=== PATIENT | female | born 1945 | race Caucasian/White ===

== ENCOUNTER → 2021-10-12 11:24 | Outpatient (BNVA) | payer MEDICARE, SELFPAY | PROVIDERS: PCP Nurse Practitioner Family; Visit Provider Nurse Practitioner Family | DX: Z20.822 Contact with and (suspected) exposure to COVID-19 (principal); R05.9 Cough, unspecified | CPT/HCPCS: 87635 ==

== ENCOUNTER → 2021-12-13 10:02 | Outpatient (BNVA) | payer MEDICARE, SELFPAY | PROVIDERS: PCP Nurse Practitioner Family; Visit Provider Nurse Practitioner Family | DX: I10 Essential (primary) hypertension (principal); E78.5 Hyperlipidemia, unspecified; M19.90 Unspecified osteoarthritis, unspecified site | CPT/HCPCS: 80053; 80061 ==

== ENCOUNTER 2022-01-04 12:47 | Outpatient (CLI) | payer MEDICARE, SELFPAY ==
--- NOTE | 2022-01-04 13:02 | XR_ITS ---
WS: [id number] Thoracic spine, 3 views of the thoracolumbar spine. 01/04/2022 Clinical Data: M54.9 - Dorsalgia, unspecified Comparison: None. Findings: There is a slight dextroscoliosis with kyphosis of the thoracic spine with moderate osteoarthritic ch chuy. The paravertebral regions are unremarkable. No acute thoracic compression fractures are seen bu t there is wedging of T12. There is a thoracolumbar posterior fusion from T12 extending into the sacr um. There is an anterior lumbosacral fusion L5-S1. There are artificial disks at L3-L4, L4-L5 and L5-S1. There are 3 orthopedic anchors in one of the hu meral heads. XR/XR thoracic spine 3V* [id number] Impression: 1. 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 2. There is a thoracolumbar posterior fusion from T12-S1 and anterior fusion at L5-S1.
== END 2022-01-04 12:48 | disposition home or self-care (01) ==
LOC: RAD 12:51
PROVIDERS: PCP Nurse Practitioner Family; Visit Provider Nurse Practitioner Family
DX: M54.9 Dorsalgia, unspecified (principal); M41.84 Other forms of scoliosis, thoracic region; M47.814 Spondylosis without myelopathy or radiculopathy, thoracic region; Z98.1 Arthrodesis status; R06.02 Shortness of breath; I10 Essential (primary) hypertension; E78.5 Hyperlipidemia, unspecified; K21.9 Gastro-esophageal reflux disease without esophagitis; K22.70 Barrett's esophagus without dysplasia; M19.90 Unspecified osteoarthritis, unspecified site; R60.9 Edema, unspecified
CPT/HCPCS: 72072; 99204

== ENCOUNTER → 2022-03-28 10:23 | Outpatient (BNVA) | payer MEDICARE, SELFPAY | PROVIDERS: PCP Nurse Practitioner Family; Visit Provider Internal Medicine Cardiovascular Disease | DX: R06.00 Dyspnea, unspecified (principal); I10 Essential (primary) hypertension; I25.10 Atherosclerotic heart disease of native coronary artery without angina pectoris | CPT/HCPCS: 99213; 99214 ==

== ENCOUNTER 2022-04-20 08:35 | Outpatient (CLI) | payer MEDICARE, SELFPAY ==
--- NOTE | 2022-04-20 | ECG_ITS ---
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 Interpretive Statements NAME OF STUDY: LEXISCAN SESTAMIBI STRESS TEST INDICATION: Chest Pain, Shortness of breath PROCEDURE: At the baseline, the blood pressure was 138/60 mmHg with a heart rate of 59 bpm. The electrocardiogram showed sinus rhythm, normal axis with nonspecific ST changes.. The Lexiscan was infused over a period of 20 seconds. A total of 0.4 milligrams of Lexiscan was infused. The stress phase was continued for a total of 5 minutes. Heart rate at the end of the stress phase was 77 bpm with a blood pressure of 127/53 mmHg. The EKG at the peak infusion revealed sinus rhythm with no significant ST-T wave changes. The study was terminated due to protocol completion. Sestamibi was injected 20 seconds after the Lexiscan infusion. Blood pressure at the end of the recovery phase was 124/55 mmHg with a heart rate of 74 beats per minute. CONCLUSION: 1. No significant EKG changes with the LexiScan infusion. 2. No LexiScan induced chest pain or cardiac arrhythmia. 3. Normal blood pressure and heart rate response. 4. Sestamibi/sestamibi perfusion scan pending; see separate report. Electronically Signed On 04-22-2022 13:40:50 CDT by Summer Shore M.D. [id number]
[2022-04-20 08:57] VITALS: BMI 20.2
--- NOTE | 2022-04-20 08:57 | NMCV_ITS ---
NM adams perf SPECT r/s* [id number] Mónica Lopez Age: 76 Gender: F : 1945 Exam Date: 04/20/2022 09:48 Ordering Phys: Summer Shore MD ([email or web address]) Technologist: DANILO Enamorado Exam Location: [facility] Indications: CHEST PAIN STRESS TEST Please see separate stress test report in [facility] for full findings IMAGE PROTOCOL Rest/Stress 1 Lexiscan Day Radiopharmaceutical Dose (mCi) Administration Site Administered by Rest: Tc-99m 10.6 IV DANILO Ruiz Sestamibi Stress:Tc-99m 32.5 IV DANILO Ruiz Sestamibi Rest: 20-Apr-2022 60 Discovery 630 Stress: 20-Apr-2022 30 Discovery 630 0.4mg Lexiscan. Images obtained in supine and prone position. SPECT RESULTS Technical Quality: Excellent Raw Data Analysis: Normal Image Corrections: No attenuation or motion correction applied Summed Stress Score: 2 Summed Rest Score: 1 Summed Difference Score: 2 PERFUSION FINDINGS Small size perfusion abnormality of mild severity of apical inferior and apical lateral becerra on rest images with improved tracer uptake on stress images. This is suggestive of attenuation artifact. FUNCTIONAL RESULTS (calculated via Gated SPECT) Stress Image LV EF (%): 81 Stress EDV (mL):64 TID: 0.98 Stress ESV (mL):12 FUNCTIONAL FINDINGS: The left ventricle is normal in size. Transient Ischemia Dilatation of 0.98. The left ventricular ejection fraction is hyperdynamic with a value of 81%. There is hyperdynamic left ventricular wall thickening. IMPRESSIONS 1. Myocardial perfusion imaging is normal. Attenuation artifact noted in apical inferior and apical lateral becerra. 2. Overall left ventricular systolic function is hyperdynamic without regional wall motion abnormalities, LVEF=81%. 3. No EKG changes with Lexiscan infusion. Refer to separate report for details. Summer Shore MD (Electronically Signed) Final Date: 22 April 2022 13:58 S
[2022-04-20] MEDS: regadenoson 0.4 Mg/5 ml Syringe IVP (10:49)
[2022-04-20 11:06] VITALS: BP 124/55; PULSE 75
--- NOTE | 2022-04-20 11:45 | USCV_ITS ---
Mónica Lopez Age: 76 Gender: F : 1945 Exam Date: 04/20/2022 12:01 Ordering Phys: Summer Shore MD ([email or web address]) Technologist: Jose Braga [place] [facility] [place]: Chest pain BP: 138 / 72 HR: 67 Rhythm: Sinus Technical Quality: Adequate MEASUREMENTS (Male / Female) Normal Values 2D ECHO LV Diastolic Diameter PLAX 3.8 cm 4.2 - 5.9 / 3.9 - 5.3 cm LV Systolic Diameter PLAX 2.5 cm IVS Diastolic Thickness 1.0 cm 0.6 - 1.0 / 0.6 - 0.9 cm IVS Systolic Thickness 1.3 cm LVPW Diastolic Thickness 1.2 cm 0.6 - 1.0 / 0.6 - 0.9 cm LVPW Systolic Thickness 1.1 cm LVOT Diameter 2.0 cm LV Ejection Fraction 2D Teich 63.8 % LV Ejection Fraction MOD 2C 59.1 % LV Ejection Fraction 2C AL 59.3 % LA Diameter 3.5 cm IVC Diameter 0.9 cm M-MODE Aortic Annulus Diameter 2.8 cm LA Ao Ratio MM 1.3 MV E Point Septal Separation 0.7 cm DOPPLER AV Peak Velocity 144.0 cm/s LVOT Peak Velocity 104.0 cm/s AV Area Cont Eq vti 2.2 cm squared AV Area Cont Eq pk 2.4 cm squared MV Area PHT 5.0 cm squared Mitral E to A Ratio 0.7 MV E' Velocity 41.0 cm/s Mitral E to MV E' Ratio 6.2 Mitral E to LV E' Lateral Ratio 7.2 Mitral E to LV E' Septal Ratio 5.4 TR Peak Velocity 207.0 cm/s TR Peak Gradient 17.1 mmHg TV Peak E Velocity 73.0 cm/s Right Atrial Pressure 3.0 mmHg Pulmonary Artery Systolic Pressu 20.1 mmHg PV Peak Velocity 105.0 cm/s FINDINGS Left Ventricle Normal left ventricular size, systolic function and wall thickness, with no regional wall motion abnormalities. Left ventricular ejection fraction is estimated at 68 %. Normal diastolic function. Right Ventricle Normal right ventricular size and systolic function. Right ventricular systolic pressure 20.1 mmHg. Right Atrium Normal right atrial size. Left Atrium Normal left atrial size. Mitral Valve Structurally normal mitral valve. No mitral valve stenosis. Trace mitral valve regurgitation. Aortic Valve Structurally normal trileaflet aortic valve. No aortic valve stenosis. No aortic valve regurgitation. Tricuspid Valve Structurally normal tricuspid valve. No tricuspid valve stenosis. Trace tricuspid valve regurgitation. Pulmonic Valve Structurally normal pulmonic valve. No pulmonary valve stenosis. No pulmonary valve regurgitation. Pericardium No pericardial effusion. Aorta Normal size aortic root and proximal ascending aorta. IVC Normal IVC dimension with >50% respiratory change of the inferior vena cava. CONCLUSIONS 1. Normal left ventricular size, systolic function and wall thickness, with no regional wall motion abnormalities. Left ventricular ejection fraction is estimated at 68 %. Normal diastolic function. 2. Normal right ventricular size and systolic function. 3. Trace mitral and tricuspid valve regurgitation. 4. No prior similar studies to compare. Summer Shore MD (Electronically Signed) Final Date: 22 April 2022 14:09 S
== END 2022-04-20 08:36 | disposition home or self-care (01) ==
LOC: CDL 08:38
PROVIDERS: PCP Nurse Practitioner Family; Visit Provider Internal Medicine Cardiovascular Disease
DX: R07.9 Chest pain, unspecified (principal); I08.1 Rheumatic disorders of both mitral and tricuspid valves
CPT/HCPCS: 78452; 93017; 93306; A9500; J2785

== ENCOUNTER → 2022-07-01 10:17 | Outpatient (BNVA) | payer MEDICARE, SELFPAY | PROVIDERS: PCP Nurse Practitioner Family; Visit Provider Internal Medicine Cardiovascular Disease | DX: R06.00 Dyspnea, unspecified (principal); I10 Essential (primary) hypertension; E78.5 Hyperlipidemia, unspecified | CPT/HCPCS: 99214 ==

== ENCOUNTER → 2022-08-10 09:29 | Outpatient (BNVA) | payer MEDICARE, SELFPAY | PROVIDERS: PCP Nurse Practitioner Family; Visit Provider Anesthesiology Pain Medicine | DX: M51.36 Other intervertebral disc degeneration, lumbar region (principal); M47.816 Spondylosis without myelopathy or radiculopathy, lumbar region; M47.814 Spondylosis without myelopathy or radiculopathy, thoracic region; M41.9 Scoliosis, unspecified; M79.604 Pain in right leg; M79.605 Pain in left leg; M17.9 Osteoarthritis of knee, unspecified; Z98.890 Other specified postprocedural states | CPT/HCPCS: 99204 ==

== ENCOUNTER → 2022-08-30 13:34 | Outpatient (BNVA) | payer MEDICARE, SELFPAY | PROVIDERS: PCP Nurse Practitioner Family; Visit Provider Anesthesiology Pain Medicine | DX: M17.11 Unilateral primary osteoarthritis, right knee (principal) | CPT/HCPCS: 20610 ==

== ENCOUNTER → 2022-09-28 13:28 | Outpatient (BNVA) | payer MEDICARE, SELFPAY | PROVIDERS: PCP Nurse Practitioner Family; Visit Provider Anesthesiology Pain Medicine | DX: M17.12 Unilateral primary osteoarthritis, left knee (principal) | CPT/HCPCS: 20610; 77002; J7325 ==

== ENCOUNTER → 2022-10-19 10:24 | Outpatient (BNVA) | payer MEDICARE, SELFPAY | PROVIDERS: PCP Nurse Practitioner Family; Visit Provider Anesthesiology Pain Medicine | DX: M47.816 Spondylosis without myelopathy or radiculopathy, lumbar region (principal); M51.36 Other intervertebral disc degeneration, lumbar region; M47.814 Spondylosis without myelopathy or radiculopathy, thoracic region; M41.9 Scoliosis, unspecified; M25.561 Pain in right knee; M25.562 Pain in left knee; M19.90 Unspecified osteoarthritis, unspecified site; Z98.890 Other specified postprocedural states | CPT/HCPCS: 99214 ==

== ENCOUNTER 2022-11-08 08:29 | Outpatient (CLI) | payer MEDICARE, SELFPAY ==
--- NOTE | 2022-11-08 08:45 | MR_ITS ---
WS: [id number] MRI THORACIC SPINE WITHOUT CONTRAST TECHNIQUE: Sagittal T1, T2 and STIR imaging. Axial T2 imaging. Noncontrast imaging obtained. CLINICAL INFORMATION: M54.6 - Pain in thoracic spine COMPARISON: Radiograph January 04, 2022 FINDINGS: Mild thoracolumbar curve. Moderate thoracic kyphosis. Postoperative changes pedicle screw fixation wi th dorsal interconnecting rods T11 extending into the lumbar spine off the [id number]. This result s in susceptibility artifact in lower thoracic canal. Cord signal is normal. No high-grade central canal stenosis. Mild disc space narrowing with mild disc bulging upper thoracic spine at T1-T3. Tiny central protrusion at T3-T4. No significant central princess l stenosis. Mild central canal stenosis at T10-T11 due to mild disc bulging with moderate facet arthropathy. Foca l kyphosis at this level. Anterior hypertrophic changes thoracic spine. Slight retrolisthesis T12 on L1 and L1 on L2. Shallow central protrusions at T11-T12, T12-L1, and L1- L2 without significant central canal stenosis. Foramen wall visualized in the lower thoracic and uppe r lumbar spine due to susceptibility artifact from hardware. Grade 1 anterolisthesis C7 on T1. Normal caliber thoracic aorta. Adrenal glands are normal. Small LEFT renal cyst. MR/MR thoracic spin wo con* [id number] IMPRESSION: 1. Prior postoperative changes dorsal fusion T11 extending off the field-of-vi ew with anterior fusion lower lumbar spine. This degrades images in the lower t horacic spine. 2. Focal kyphosis at the T10-T11 level. 3. No acute compression fractures. Cord signal is normal. 4. Mild central canal stenosis T10/T11 with moderate facet arthropathy at this level and mild bilateral foraminal narrowing. 5. Shallow central protrusions at T11-T12, T12-L1, and L1-L2 without significa nt central canal stenosis.
== END 2022-11-08 08:30 | disposition home or self-care (01) ==
PROVIDERS: PCP Nurse Practitioner Family; Visit Provider Nurse Practitioner Family
DX: G89.29 Other chronic pain (principal); M51.24 Other intervertebral disc displacement, thoracic region; M48.04 Spinal stenosis, thoracic region; M40.294 Other kyphosis, thoracic region; M51.25 Other intervertebral disc displacement, thoracolumbar region
CPT/HCPCS: 72146

== ENCOUNTER → 2023-01-19 09:48 | Outpatient (BNVA) | payer MEDICARE, SELFPAY | PROVIDERS: PCP Nurse Practitioner Family; Visit Provider Anesthesiology Pain Medicine | DX: M51.36 Other intervertebral disc degeneration, lumbar region (principal); M47.816 Spondylosis without myelopathy or radiculopathy, lumbar region; M47.814 Spondylosis without myelopathy or radiculopathy, thoracic region; M41.9 Scoliosis, unspecified; M25.561 Pain in right knee; M25.562 Pain in left knee; Z98.890 Other specified postprocedural states; M19.90 Unspecified osteoarthritis, unspecified site | CPT/HCPCS: 99214 ==

== ENCOUNTER → 2023-02-01 14:13 | Outpatient (BNVA) | payer MEDICARE, SELFPAY | PROVIDERS: PCP Nurse Practitioner Family; Visit Provider Anesthesiology Pain Medicine | DX: M17.11 Unilateral primary osteoarthritis, right knee (principal) | CPT/HCPCS: 20610; 99212; J7325 ==

== ENCOUNTER → 2023-03-01 08:45 | Outpatient (BNVA) | payer MEDICARE, SELFPAY | PROVIDERS: PCP Nurse Practitioner Family; Visit Provider Anesthesiology Pain Medicine | DX: M51.36 Other intervertebral disc degeneration, lumbar region (principal); M47.816 Spondylosis without myelopathy or radiculopathy, lumbar region; M47.814 Spondylosis without myelopathy or radiculopathy, thoracic region; M25.562 Pain in left knee; M25.561 Pain in right knee; M41.9 Scoliosis, unspecified; M19.90 Unspecified osteoarthritis, unspecified site; Z98.890 Other specified postprocedural states | CPT/HCPCS: 99214 ==

== ENCOUNTER → 2023-03-23 12:24 | Outpatient (BNVA) | payer MEDICARE, SELFPAY | PROVIDERS: PCP Nurse Practitioner Family; Visit Provider Anesthesiology Pain Medicine | DX: M17.12 Unilateral primary osteoarthritis, left knee (principal) | CPT/HCPCS: 20610; J7325 ==

== ENCOUNTER → 2023-03-31 09:40 | Outpatient (BNVA) | payer MEDICARE, SELFPAY | PROVIDERS: PCP Nurse Practitioner Family; Visit Provider Internal Medicine Cardiovascular Disease | DX: R06.00 Dyspnea, unspecified (principal); I10 Essential (primary) hypertension; E78.5 Hyperlipidemia, unspecified; K21.9 Gastro-esophageal reflux disease without esophagitis; K22.70 Barrett's esophagus without dysplasia; M19.90 Unspecified osteoarthritis, unspecified site | CPT/HCPCS: 99214 ==

== ENCOUNTER → 2023-04-03 10:21 | Outpatient (BNVA) | payer MEDICARE, SELFPAY | PROVIDERS: PCP Nurse Practitioner Family; Referring Provider Nurse Practitioner Family; Visit Provider Specialist | DX: M17.0 Bilateral primary osteoarthritis of knee; M25.561 Pain in right knee | CPT/HCPCS: 36415; 73560; 73565; 80053; 81003; 85025; 99204 ==

== ENCOUNTER 2023-04-13 08:52 | Outpatient (CLI) | payer MEDICARE, SELFPAY ==
--- NOTE | 2023-04-13 08:58 | CT_ITS ---
WS: [id number] CT RIGHT KNEE, NONCONTRAST TECHNIQUE: Noncontrast CT of the RIGHT knee to include the RIGHT hip and ankle. [facility] CLINICAL INFORMATION: KNEE PAIN COMPARISON: None. DLP: 985.[address] scans at [facility] use at least one of these dose optimization techniques: automated e xposure control; mA and/or kV adjustment per patient size (includes targeted exams where dose is matc hed to clinical indication); or iterative reconstruction. FINDINGS: Small to moderate suprapatellar effusion. Moderate tricompartment arthritis. Hypertrophic changes alida ng the joint line. Hypertrophic patella. Vascular calcification. Lobulated popliteal cyst measuring 2 .5 x 2.2 cm. Bilateral sacroiliac fixation screws. Postoperative changes lower lumbar spine and sacrum. Normal pubic rami. Mild degenerative narrowing of both hips. Sigmoid diverticulosis. IMPRESSION: Images obtained for preoperative purposes.
== END 2023-04-13 08:53 | disposition home or self-care (01) ==
PROVIDERS: PCP Nurse Practitioner Family; Visit Provider Specialist
DX: Z01.818 Encounter for other preprocedural examination (principal); M17.11 Unilateral primary osteoarthritis, right knee
CPT/HCPCS: 73700

== ENCOUNTER 2023-04-20 16:15 | Observation (INO) | payer MEDICARE, SELFPAY ==
[2023-04-17 09:20] VITALS: BMI 20.1
[2023-04-20] VITALS (29 sets, daily range): BP systolic 113–146; BP diastolic 53–82; PULSE 16–88; RESP 10–24; TEMP 36.1–36.6; O2SAT 91–100; BMI 20.1
[2023-04-20] MEDS: sodium chloride 0.9% 1,000 ML 30 ML IV (11:09)
[2023-04-20] MEDS: CELEcoxib 200 mg Capsule 400 MG PO (11:17)
[2023-04-20] MEDS: acetaminophen 1,000 MG/100 ML PIGGYBACK 400 MG IV ×2 (11:17→19:09)
--- NOTE | 2023-04-20 11:58 | W.PM.OPSUD ---
Surgery/Procedure H&P Update DATE OF PROCEDURE: April 20, 2023 DATE H&P PERFORMED: 04/11/23 H&P UPDATE INFORMATION: I have reviewed H&P completed within last 30 days, I have examined patient prior to procedure, No changes to prior documentation and H&P is in [facility] EMR on date indicated PLANNED PROCEDURE: Operation Date: 04/20/23 12:10 Proposed Procedures p RIGHT REVISION TOTAL KNEE ARTHROPLASTY WITH CEMENTED REVISION COMPONENTS WITH [facility] GUIDANCE 70733,M17.10(Right) - Cassandra Rodriguez MD Related Problem List Diagnoses (1) Primary osteoarthritis of right knee:
--- NOTE | 2023-04-20 11:59 | ANES.PREANE2 ---
Pre-Anesthetic Assessment Height/Weight: Height 1.57 m Weight 49.895 kg Temp Pulse Resp BP Pulse Ox O2 Del Method 97.9 F 58 L 16 119/56 100 Room Air 04/20/23 10:45 04/20/23 10:45 04/20/23 10:45 04/20/23 10:45 04/20/23 10:45 04/20/23 10:46 Operation Date: 04/20/23 12:10 Proposed Procedures p RIGHT REVISION TOTAL KNEE ARTHROPLASTY WITH CEMENTED REVISION COMPONENTS WITH [facility] GUIDANCE 60937,M17.10(Right) - Cassandra Rodriguez MD Familial anesthetic complications: none Was Beta Meghana taken within 24 hours: N/A Was Clonidine taken within 24 hours: N/A Last intake: Intake Last Liquid Date 04/19/23 Last Liquid Time 18:00 Last Solid Date 04/19/23 Last Solid Time 17:00 Social No alcohol and No tobacco Exam alert, oriented x 3, clear to auscultation bilaterally and regular rate & rhythm Airway Mallampati: Class II Dentition: full CV/HEM Hypertension GI Gastroesophageal Reflux Disease Metabolic Hyperlipidemia Anesthetic Plan ASA status: 3 Anesthesia: Regional (specify below) Risk of > 500 ml blood loss (7ml/kg in children): No Medications/Allergies Home Medications Medication Instructions Recorded Confirmed Last Taken Type ibuprofen 200 mg tablet 200 mg PO Q6H PRN Pain 03/28/22 04/17/23 04/10/23 History psyllium husk (aspartame) 3.4 gram 1 packet PO DAILY PRN Constipation 03/28/22 04/17/23 02/16/23 History oral powder packet (Metamucil Fiber Singles) atorvastatin 20 mg tablet (Lipitor) 20 mg PO DAILY #90 tabs 07/01/22 04/20/23 04/19/23 Rx esomeprazole magnesium 20 mg 20 mg PO DAILY 07/01/22 04/20/23 04/20/23 History capsule,delayed release lisinopril 20 1 tab PO BID #180 tabs 07/01/22 04/20/23 04/19/23 Rx mg-hydrochlorothiazide 25 mg tablet verapamil 240 mg tablet,extended 240 mg PO DAILY #90 tabs 07/01/22 04/20/23 04/20/23 Rx release denosumab 60 mg/mL subcutaneous 60 mg SUBCUT .every 6 months #1 mL 10/25/22 04/17/23 11/30/22 Rx syringe (Prolia) acetaminophen 325 mg tablet 325 mg PO QID PRN Pain 03/31/23 04/17/23 04/10/23 History cetirizine 10 mg tablet (Zyrtec) 10 mg PO DAILY 03/31/23 04/20/23 04/19/23 History gabapentin 600 mg tablet 600 mg PO TID 03/31/23 04/20/23 04/20/23 History Allergies Allergy/AdvReac Type Severity Reaction Status Date / Time chamomile flower Allergy ALGY-Difficulty Verified 04/17/23 09:16 Breathing levofloxacin [From Levaquin] Allergy ADV-Weaknes Verified 04/17/23 09:16 s Current Medications Generic Name Dose Route Start Last Admin Trade Name Freq PRN Reason Stop Dose Admin Sodium Chloride 1,000 mls @ 30 mls/hr 04/20/23 10:45 04/20/23 11:09 Sodium Chloride 0.9% IV 04/21/23 10:44 30 mls/hr .Q24H SHEA Administration PFSH Anesthesia Medical History Howell esophagus Degenerative disc disease GERD (gastroesophageal reflux disease) Hiatal hernia Hx of coronary artery disease Hyperlipidemia Hypertension Osteoarthritis Osteopenia Stroke ischemic stroke 2002, no residual effects but BP meds were added at the time. Surgical History S/P cataract surgery Status post rotator cuff surgery Status post spinal surgery Family History Mother Cancer S/P CABG (coronary artery bypass graft) Father Cancer Stroke Other Hypertension Denies family history of Clotting disorder Anesthesia complication Bleeding disorder Social History Smoking and tobacco status: never smoked Alcohol intake: never Substance/Drug Use: never Data Anesthesia Cardiac Studies: Echocardiogram 04/20/22 Sestamibi Stress Test (Cardiology) 04/20/22
--- NOTE | 2023-04-20 12:02 | ANES.PROC ---
Anesthesia Procedures Procedure/Date: 04/20/23 Nerve Block ^: Nerve Block 1: Main Anesthesia: spinal anesthesia block Time Out Performed: Yes Consent: requested by attending/covering physician, from patient, from other, risks and benefits reviewed and patient agrees to proceed Nerve block location: adductor canal (R) Anesthesia monitors applied: pulse oximetry, EKG, BP cuff and oxygen Nerve block position: supine Anesthetic Used: ropivicaine 0.5% (30 ml) and with decadron (4 mg) Ultrasound used to: recognize landmarks and visualize and ID femerol nerve Nerve Stimulator Used?: No Interscalene/Femoral BLK: 4 stimuplex 21 g needle used for position and inplane approach, visualize local anesthetic spread and no vascular puncture identified Injection: neg aspiration of heme Patient Tolerated Procedure: well and no complications Complications: none
[2023-04-20] MEDS: ceFAZolin 2,000 MG in sodium chloride 0.9% (plus) 50 ML 100 MG IV ×2 (12:54→20:41)
[2023-04-20] MEDS: tranexamic acid 1,000 mg/10mL SDV 1000 MG IV (13:15)
[2023-04-20] MEDS: sodium chloride 0.9% 50 ML IRRIGATION (13:48)
[2023-04-20] MEDS: ceFAZolin 1,000 mg SDV 4000 MG IRRIGATION (13:52)
[2023-04-20] MEDS: BUPivacaine 0.5% INJ 10 mL 20 ML INJECTION (13:55)
[2023-04-20] MEDS: BUPivacaine liposome 13.3 mg/mL SDV 10 mL 266 MG INJECTION (13:56)
[2023-04-20] MEDS: vancomycin 1,000 MG SDV 1000 MG XX (14:47)
--- NOTE | 2023-04-20 16:00 | P.OP_ITS ---
Operative Report Date of procedure: April 20, 2023 Pre-op diagnosis: Severe degenerative osteoarthritis right knee Post-op diagnosis: Severe degenerative osteoarthritis right knee Post-op findings: Anterior cortical defect was calcified and reproduced cortical bone. Patient had osteopenia. Procedure done: Right total knee arthroplasty with Levi guidance Implants: The Emanuel total knee system with a size 3 triathlon cruciate retaining femur right, a triathlon universal tibial component size?2 cemented, a triathlon X3 tibial bearing CS insert size 2 X 10 mm and a triathlon symmetric patella size 29 x 8 mm Specimens removed/disposition: Bone, disposed of Pathology: none sent Surgeon: Cassandra Rodriguez Surgeon: Cassandra Rodriguez MD Monument Setter: [facility] operating room technicians Anesthesia: General (Per LMA, ASA 3 with preoperative adductor canal block) Estimated blood loss (mL): 150 Tourniquet time (min): 0 (Not utilized) IV fluids (mL): 1,500 Urine output (mL): 200 Complications: None Findings: Anterior notching of the cortex, but the notching was solid and appeared well- corticated. Given the size of the patient's knee and the bone that would be required to be resected for stent placement, we elected to proceed with primary cemented knee arthroplasty. Condition: stable Disposition: PACU (Then to floor for postoperative rehabilitation and pain management) Brief History: This is a 77-year-old woman who presents for right total knee arthroplasty with Levi guidance. Patient has been having pain for years. Patient states the right knee is worse than the left. Patient states the pain is to the anterior medial aspect of the knee. Patient describes the pain as constant and sharp at times. Patient states that bearing weight is increases the pain. Patient states that the knee feels unstable, and therefore, she ambulates with a cane. Patient denies any popping, cracking, or catching of the knee. Procedure: The patient was brought to the operating theater, and she was administered a general anesthesia per LMA, ASA 3. The patient also had a supplemental adductor block.? Following this, the right lower extremity was prepped with Dura-Prep and draped in usual fashion following placement of a tourniquet high on the leg. The leg was then draped free.? Tourniquet was not elevated during the case.? A surgical pause was performed, and at the time of the surgical pause, we confirmed the site and side of surgery. Additionally, we confirmed the appropriate and timely administration of preoperative antibiotics, Ancef 2 g and Transexemic acid 1 g.? The availability of equipment was confirmed, and the patient's identity was verbalized as well.? An additional transexemic acid 1 g will be given on the floor as well. Following the surgical pause, an incision was made centering over the patella continuing proximally and distally as necessary to allow access to the knee joint. Dissection continued through skin and soft tissues using a scalpel. Hemostasis was obtained using electrocautery. The skin incision was followed by a median parapatellar arthrotomy. The leg was extended and the patella was able to be displaced laterally without difficulty.? Medial release was initially accomplished to allow placement for the Levi array.? Appropriate arrays and markers were placed in appropriate position for use of the Levi.? Preoperative planning had been accomplished and was discussed in detail with the Levi auto service representative.? Intraoperative mapping of the femur and tibia was accomplished after the arrays were placed.? Internal markers were also placed.? Once we had accomplished the Levi mapping, we began the appropriate resections for placement of the prosthesis.? The plan was for a cruciate retaining right total knee arthroplasty.? Medial releases were accomplished prior to the surgical procedure to allow balancing of the knee. Once appropriate mapping had been accomplished retraction was established using manual retraction by surgical technicians and also the Levi leg positioner and retractors.? The knee was evaluated.? There was significant osteoarthritic change with significant osteophyte formation and significant varus.? First cuts were made on the femur.? Appropriate resection of bone was accomplished with the Levi guidance.? The femur was sized to a size 3.? Following the tibial cut, the tibia to a size 2.? Osteophytes were removed prior to beginning bony resection. Secondary to the patient's osteopenia, plans were made for a cemented knee arthroplasty. Consideration was given for stems to be placed particularly in the femur secondary to her anterior bony defect, but after evaluation of the area and seeing that this defect was quite corticated, we elected not to proceed with stems. In order to place the stem, a significant amount of distal femur would had to have been removed leaving only a shell of bone for ligamentous connections. Therefore, it was felt prudent, to proceed without augments or stems on the femur. A trial reduction was accomplished after osteophytes have been removed as well as the medial and lateral menisci.? We had removed the anterior cruciate ligament at the beginning of the case and preserved the posterior cruciate ligament.? Trial reduction was accomplished with a size 3 femoral posterior cruciate retaining component and a size 2 tibial tray with a size 2 x 9 CS tibial bearing insert.? Alignment and balance were felt to be appropriate.? We did elect to increase to a size 10 mm insert. Consideration was also given to a PS component, but with the CS component in place, we had excellent tracking and therefore chose to continue with a cemented cruciate retaining prosthesis. Trial components were removed after the femur had been drilled.? Prior to removal of the tibial tray which had been pinned in position with appropriate rotation as determined by the Levi plan, we drilled and broached the tibia.? All trial components were removed, and the wound was irrigated.? Plans were made for insertion of the prosthetic components.? Prior to this, the patella was manually prepared.? After resection of the articular surface with the patellar huang, it was measured and measured a 29 mm symmetric patella.? We resected approximately 5 mm of patella as it was noted to be quite thin.? Patellar height was restored with the patellar component. Once again, the wound was irrigated.? Surfaces were then dried. There was not significant bleeding, therefore, tourniquet was not elevated. The size 2 universal tibial baseplate was cemented into position. Excess cement was cleared once cementing was accomplished. Following this, the CS tibial insert was placed into the tibial tray and impacted into position. The cruciate r etaining right femur was then cemented into position as well. Excess cement again was cleared. The leg was extended and held in an extended position while the cement fully cured. Additionally, the size 29 mm symmetric patella was cemented in position as well. This was held with a clamp while the cement fully cured.? Exparel was injected about the components deep and superficially.? The knee was then copiously irrigated with betadine and saline and suctioned dry.? Further irrigation was accomplished with saline following the Betadine.? Attention was then directed to closure. Closure was accomplished with 0 Vicryl in the fascial tissues followed by #1 strata fix run from proximal to distal as well as distal to proximal overlapping.? This was followed by Surgiflo and vancomycin powder.? Following this, a 2-0 Monocryl was used in the subcutaneous tissues.? The skin was closed with skin roxann.? Care was taken to assure an excellent subcutaneous as well as skin closure.? A sterile dressing was then placed consisting of Dermabond Prineo, OpSite, sterile soft roll including over the foot, and an Kolton wrap. The patient was returned the Recovery Room in a satisfactory condition. X-rays were obtained and reviewed there.? The patient will be discharged to the floor for postoperative rehabilitation and pain management. Related Problem List Diagnoses (1) Primary osteoarthritis of right knee:
--- NOTE | 2023-04-20 16:10 | XR_ITS ---
WS: [id number] Exam: XR knee RT 1-2V [id number] Date/Time of Exam: 04/20/2023 4:10 PM Reason For Exam: Status post right total knee arthroplasty Comparison 04/03/2023. Total knee arthroplasty noted in excellent position. Postoperative changes in the adjacent soft tissu es. Anterior surgical skin clips. IMPRESSION: 1. Total knee replacement in excellent position.
[2023-04-20] MEDS: fentaNYL 50 mcg/mL INJ 2mL IVP (16:46)
[2023-04-20] MEDS: HYDROmorphone 1 mg/mL INJ 1 mL 0.5 MG IVP ×2 (16:59→17:24)
--- NOTE | 2023-04-20 17:40 | ANE.PACU2 ---
Inpatient post-anesthesia follow up: Airway intact: Yes Vital signs: Temperature 98 F Pulse Rate 83 Respiratory Rate 16 Blood Pressure 104/59 Pulse Oximetry 99 Oxygen Delivery Me thod Room Air Oxygen Flow Rate 6 Fraction of Inspir ed Oxygen Hydration adequate: Yes Nausea and vomiting: No Pain level: 1 Mental status: Baseline
[2023-04-20] MEDS: chlorhexidine gluconate 0.12% Btl 473 mL 30 ML MUCOUS MEM (19:08)
[2023-04-20] MEDS: calcium carbonate 500 mg Chew Tablet 1000 MG PO (19:09)
[2023-04-20] MEDS: mupirocin oint 22 gm 1 APPLIC NASAL (19:09)
[2023-04-20] MEDS: sennosides-docusate Tablet 2 TAB PO (19:10)
[2023-04-20] MEDS: iron polysaccharide complex 150 mg Capsule PO (19:10)
[2023-04-20] MEDS: lisinopril 20 mg Tablet PO (19:10)
[2023-04-20] MEDS: gabapentin 300 mg Capsule 600 MG PO (20:41)
[2023-04-20] MEDS: oxyCODONE 5 mg IR Tab/Cap PO (23:14)
[2023-04-21] VITALS (9 sets, daily range): BP systolic 94–104; BP diastolic 55–63; PULSE 77–90; RESP 14–18; TEMP 36.4–36.7; O2SAT 96–99
[2023-04-21] MEDS: acetaminophen 1,000 MG/100 ML PIGGYBACK 400 MG IV ×2 (02:43→11:39)
[2023-04-21] MEDS: ceFAZolin 2,000 MG in sodium chloride 0.9% (plus) 50 ML 100 MG IV ×2 (04:58→14:12)
[2023-04-21 05:45] LABS: Basophils % 0.1 %; Hematocrit 31.8 % (36-47); Lymphocytes # 0.7 10^3/uL (0.8-4.8); Mean Corpuscular HGB Conc 32.1 g/dL (30-55); Mean Corpuscular Volume 93.5 fl (85-98); Mean Platelet Volume 11.1 fL (7.4-10.4); Monocytes # 0.9 10^3/uL (0.2-0.9); Monocytes % 6.4 %; Neutrophils # 12.59 10^3/uL (1.8-7.7); Nucleated Red Blood Cells % 0 %; Platelet Count 173 10^3/cmm (157-399); Red Cell Distribution Width 12.5 % (12.1-15.1); White Blood Count 14.29 10^3/uL (3.29-11.43)
[2023-04-21] MEDS: oxyCODONE 5 mg IR Tab/Cap PO ×3 (06:05→15:43)
[2023-04-21 06:07] LABS: Anion Gap 19.2 (5-19); Blood Urea Nitrogen 38 mg/dL (8-23); Calcium 8.2 mg/dL (8.5-10.5); Carbon Dioxide 20 mmol/L (22-29); Chloride 105 mmol/L (98-107); Glucose 155 mg/dL (65-115); Osmolality Calculated 302 mOsm/kg (285-295); Potassium 4.2 mmol/L (3.5-5.1); Sodium 140 mmol/L (136-145)
[2023-04-21] MEDS: multivitamin therapeutic Tablet 1 TAB PO (08:53)
[2023-04-21] MEDS: iron polysaccharide complex 150 mg Capsule PO (08:54)
[2023-04-21] MEDS: pantoprazole DR 40 mg Tablet PO (08:54)
[2023-04-21] MEDS: atorvastatin 40 mg Tablet 20 MG PO (08:54)
[2023-04-21] MEDS: lisinopril 20 mg Tablet PO (08:55)
[2023-04-21] MEDS: sennosides-docusate Tablet 2 TAB PO (08:55)
[2023-04-21] MEDS: verapamil ER 240 mg Tablet PO (08:56)
[2023-04-21] MEDS: cholecalciferol (vitamin D3) 1,000 unit Tablet 1000 UNIT PO (08:56)
[2023-04-21] MEDS: calcium carbonate 500 mg Chew Tablet 1000 MG PO (08:56)
[2023-04-21] MEDS: aspirin 325 mg EC Tablet PO (08:56)
[2023-04-21] MEDS: CELEcoxib 200 mg Capsule PO (08:57)
[2023-04-21] MEDS: gabapentin 300 mg Capsule 600 MG PO ×2 (08:57→14:15)
[2023-04-21] MEDS: chlorhexidine gluconate 0.12% Btl 473 mL 30 ML MUCOUS MEM ×2 (09:00→14:13)
[2023-04-21] MEDS: mupirocin oint 22 gm 1 APPLIC NASAL (09:02)
--- NOTE | 2023-04-21 14:20 | P.DS_ITS ---
Discharge Providers Date of Admission: 04/20/23 16:15 Date of Discharge: April 21, 2023 Attending Provider at Admission: Cassandra Rodriguez MD Attending Provider at Discharge: Cassandra Rodriguez MD Primary Care Provider: GABRIEL Cruz Diagnoses at Discharge Discharge Diagnosis (1) Status post total right knee replacement using cement: Status: Acute Permanent problem details: Date of procedure: April 20, 2023 Diagnosis: Severe degenerative osteoarthritis right knee Post-op findings: Anterior cortical defect was calcified and reproduced cortical bone. Patient had osteopenia. Procedure done: Right total knee arthroplasty with Levi guidance Implants: The [employer] total knee system with a size 3 triathlon cruciate retaining femur right, a triathlon universal tibial component size 2 cemented, a triathlon X3 tibial bearing CS insert size 2 X 10 mm and a triathlon symmetric patella size 29 x 8 mm (2) Primary osteoarthritis of right knee: Status: Acute Reason for Visit Reason for Visit: 76225 M17.10 Brief History: This is a 77-year-old woman who presents for right total knee arthroplasty with Levi guidance. Patient has been having pain for years. Patient states the right knee is worse than the left. Patient states the pain is to the anterior medial aspect of the knee. Patient describes the pain as constant and sharp at times. Patient states that bearing weight is increases the pain. Patient states that the knee feels unstable, and therefore, she ambulates with a cane. Patient denies any popping, cracking, or catching of the knee. Hospital Course Hospital Course Patient was admitted under observation status following same-day surgery for right total knee arthroplasty. Initially, she was designated as a revision knee arthroplasty as it was felt that we would need revision components to bypass her anterior cortical defect in the femur. Upon evaluation at the time of surgery, a primary knee was placed. This was cemented secondary to significant osteopenia. Patient was admitted to the hospital under observation status following this procedure. She did well with therapy on the first postoperative day. She was felt safe for discharge to home and plans were made for this. Physical Exam Const: COMMON NORMALS: no acute distress, average body habitus, patient oriented x3 and alert GENERAL APPEARANCE: cooperative and comfortable ORIENTATION/CONSCIOUSNESS: Yes awake HENMT: COMMON NORMALS: normocephalic and atraumatic HEAD & SCALP: norm ocephalic and atraumatic Eye: GENERAL EYE: appearance normal, both eyes and all related structures Chest: COMMONS NORMALS: normal inspection of the chest Resp: COMMON NORMALS: normal respiratory effort EFFORT & INSPECTION: Yes able to speak in complete sentences and Yes symmetric chest movement Extremity: RIGHT LOWER EXTREMITY: Yes knee joint (Large outer dressing is removed. Minimal to no swelling or ecchymosis) Right knee: Yes palpation (Minimal tenderness), Yes ROM (Able to straight leg raise) and Yes neurovascular exam (Intact with no evidence of DVT) Neuro: COMMON NORMALS: patient oriented x3 SENSORIUM/ORIENTATION: Yes alert Psych: COMMON NORMALS: mental status grossly normal APPEARANCE: Yes grossly normal ATTITUDE: Yes calm and Yes engaged ATTENTION/CONCENTRATION: Yes attention grossly intact Skin: COMMON NORMALS: no rashes or lesions noted GENERAL SKIN EXAM: no rashes or lesions noted Urinary Catheter Management: Joe: Cath Placed During This Visit: yes, but has since been removed by the nurse Reason for Continuing Indwelling Catheter: Perioperative Use in Selected Surgeries Urinary Catheter Date of Insertion: 04/20/23 Urinary Catheter Time of Insertion: 13:15 Date Urinary Catheter Removed: 04/21/23 Time Urinary Catheter Discontinued: 06:22 Discharge Data Studies Completed and Pending Completed Studies During Hospitalization Category Date Time Status XR knee RT 1-2V [id number] Routine Exams 04/20/23 16:10 Completed Pending at discharge Category Date Time Status Pathology: Surgical [PTH] Routine Pth 04/20/23 15:57 Received Laboratory Results WBC 14.29 10^3/uL (3.29-11.43) H 04/21/23 05:30 RBC 3.40 10^6/uL (3.85-5.65) L 04/21/23 05:30 Hgb 10.20 g/dL (11.27-16.99) L 04/21/23 05:30 Hct 31.8 % (36-47) L 04/21/23 05:30 MCV 93.5 fl (85-98) 04/21/23 05:30 MCH 30.0 pg (27-33) 04/21/23 05:30 MCHC 32.1 g/dL (30-55) 04/21/23 05:30 RDW 12.5 % (12.1-15.1) 04/21/23 05:30 Plt Count 173 10^3/cmm (157-399) 04/21/23 05:30 MPV 11.1 fL (7.4-10.4) H 04/21/23 05:30 Neut % (Auto) 88.0 % 04/21/23 05:30 Lymph % (Auto) 5.0 % 04/21/23 05:30 [place] % (Auto) 6.4 % 04/21/23 05:30 Eos % (Auto) 0.0 % 04/21/23 05:30 Baso % (Auto) 0.1 % 04/21/23 05:30 Neut # (Auto) 12.59 10^3/uL (1.8-7.7) H 04/21/23 05:30 Lymph # (Auto) 0.7 10^3/uL (0.8-4.8) L 04/21/23 05:30 [place] # (Auto) 0.9 10^3/uL (0.2-0.9) 04/21/23 05:30 Eos # (Auto) 0.0 10^3/uL (0.0-0.8) 04/21/23 05:30 Baso # (Auto) 0.0 10^3/uL (0.0-0.1) 04/21/23 05:30 Nucleated RBC % (auto) 0 % 04/21/23 05:30 Nucleated RBCs # 0.0 /100WBC 04/21/23 05:30 Sodium 140 mmol/L (136-145) 04/21/23 05:30 Potassium 4.2 mmol/L (3.5-5.1) 04/21/23 05:30 Chloride 105 mmol/L (98-107) 04/21/23 05:30 Carbon Dioxide 20 mmol/L (22-29) L 04/21/23 05:30 Anion Gap 19.2 (5-19) H 04/21/23 05:30 BUN 38 mg/dL (8-23) H 04/21/23 05:30 Creatinine 1.4 mg/dL (0.5-0.9) H 04/21/23 05:30 GFR Calculation Not Reportable 04/21/23 05:30 Glucose 155 mg/dL (65-115) H 04/21/23 05:30 Calculated Osmolality 302 mOsm/kg (285-295) H 04/21/23 05:30 Calcium 8.2 mg/dL (8.5-10.5) L 04/21/23 05:30 Vitals Last Vital Signs Temp 97.6 F 04/21/23 12:00 Pulse 90 04/21/23 12:00 Resp 16 04/21/23 12:00 BP 94/58 04/21/23 12:00 Pulse Ox 97 04/21/23 12:00 O2 Del Method Room Air 04/21/23 03:58 O2 Flow Rate 6 04/20/23 16:28 Discharge Plan Discharge Patient Disposition: Home Health Service Condition: Stable Prescriptions: New aspirin 325 mg Tablet,Delayed Release (Dr/Ec) 325 mg PO DAILY 30 Days Qty: 30 0RF oxycodone 5 mg Tablet 5 mg PO Q4H PRN (Reason: Moderate Pain) 7 Days Qty: 30 0RF Continued Metamucil Fiber Singles 3.4 gram powder in packet 1 packet PO DAILY PRN (Reason: Constipation) esomeprazole magnesium 20 mg capsule,delayed release(DR/EC) 20 mg PO DAILY atorvastatin [Lipitor] 20 mg tablet 20 mg PO DAILY Qty: 90 3RF lisinopril-hydrochlorothiazide 20-25 mg tablet 1 tab PO BID Qty: 180 3RF verapamil 240 mg tablet extended release 240 mg PO DAILY Qty: 90 3RF gabapentin 600 mg tablet 600 mg PO TID acetaminophen 325 mg tablet 325 mg PO QID PRN (Reason: Pain) cetirizine [Zyrtec] 10 mg tablet 10 mg PO DAILY Prolia 60 mg/mL syringe 60 mg SUBCUT .every 6 months Qty: 1 1RF Held ibuprofen 200 mg tablet 200 mg PO Q6H PRN (Reason: Pain) Hold Instructions: Resume on 05/26/23. You may resume after 30 days of Celebrex Discharge Orders: Discharge Order (Routine); Ordered 04/21/23 Ordered By: Cassandra Rodriguez Referrals: Anat May FNP [Primary Care Provider] - 04/25/23 10:20 am Cassandra Rodriguez MD [Physician] - 05/01/23 10:00 am Discharge Diet: Advance as tolerated and Usual diet Discharge Activity: Increase activity as tolerated, Limit activity as instructed, Use walker/crutches as instructed and As per PT/OT instructions Patient Instructions: Aspirin (By mouth), Oxycodone, Rapid Release (By mouth), Total Knee Replacement (GEN), Joint Replacement Stoplight, Opioid Safety Activity Restrictions/Additional Instructions: Ambulation and gait training per physical therapy. Ice to right knee. Elevate right lower extremity. You may shower, but do not bathe or soak your knee in water. Maintain the clear plastic dressing until it comes off on its own. Discharge Attestations Time Spent in Discharge Care*: greater than 30 min Specific Discharge Activities: educating patient, documenting/other paperwork and evaluating patient/reviewing data Quality Metrics Clinical Quality Measures [ No reported AMI, CVA or VTE this stay] Coding Level of Care Code Acute Code for Chg Fwd Diagnoses Status post total right knee replacement using cement Z96.651 Primary osteoarthritis of right knee M17.11
== END 2023-04-21 17:30 | disposition home health service (06) ==
LOC: MEDSURG 16:16
PROVIDERS: Admitting Provider Specialist; PCP Nurse Practitioner Family; Visit Provider Specialist
PROC: 8E0Y0CZ Robotic Assisted Procedure of Lower Extremity, Open Approach (ICD-10-PCS; CPT 27447; principal; 2023-04-20 11:40)
DX: M17.11 Unilateral primary osteoarthritis, right knee (principal); K21.9 Gastro-esophageal reflux disease without esophagitis; E78.5 Hyperlipidemia, unspecified; I10 Essential (primary) hypertension
CPT/HCPCS: 27447; 36415; 51702; 73560; 80048; 85025; 88304; 88305; 88307; 88311; 97110; 97116; 97161; 97165; 97530; C1776; C9290; G0378; J0131; J0360; J0690; J1100; J1170; J2704; J2795; J3010; J3370; J3490; J7030

== ENCOUNTER → 2023-05-01 09:47 | Outpatient (BNVA) | payer MEDICARE, SELFPAY | PROVIDERS: PCP Nurse Practitioner Family; Visit Provider Nurse Practitioner Family | DX: Z96.651 Presence of right artificial knee joint (principal); Z48.89 Encounter for other specified surgical aftercare | CPT/HCPCS: 73560; 73565; 99024 ==

== ENCOUNTER → 2023-05-29 09:48 | Outpatient (BNVA) | payer MEDICARE, SELFPAY | PROVIDERS: PCP Nurse Practitioner Family; Visit Provider Nurse Practitioner Family | DX: R19.7 Diarrhea, unspecified (principal) | CPT/HCPCS: 82272 ==

== ENCOUNTER → 2023-06-06 10:01 | Outpatient (BNVA) | payer MEDICARE, SELFPAY | PROVIDERS: PCP Nurse Practitioner Family; Visit Provider Nurse Practitioner | DX: M17.11 Unilateral primary osteoarthritis, right knee (principal); Z96.651 Presence of right artificial knee joint | CPT/HCPCS: 73560; 73565; 99024 ==

== ENCOUNTER → 2023-06-22 10:38 | Outpatient (BNVA) | payer MEDICARE, SELFPAY | PROVIDERS: PCP Nurse Practitioner Family; Visit Provider Anesthesiology Pain Medicine | DX: M51.36 Other intervertebral disc degeneration, lumbar region; M41.9 Scoliosis, unspecified; Z98.890 Other specified postprocedural states; M47.816 Spondylosis without myelopathy or radiculopathy, lumbar region; M47.814 Spondylosis without myelopathy or radiculopathy, thoracic region; M25.561 Pain in right knee; M25.562 Pain in left knee | CPT/HCPCS: 99214 ==

== ENCOUNTER → 2023-07-27 09:53 | Outpatient (BNVA) | payer MEDICARE, SELFPAY | PROVIDERS: PCP Nurse Practitioner Family; Visit Provider Nurse Practitioner | DX: M17.11 Unilateral primary osteoarthritis, right knee (principal); Z96.651 Presence of right artificial knee joint | CPT/HCPCS: 73560; 73565; 99214 ==

== ENCOUNTER → 2023-10-18 11:08 | Outpatient (BNVA) | payer MEDICARE, SELFPAY | PROVIDERS: PCP Nurse Practitioner Family; Visit Provider Specialist | DX: M17.12 Unilateral primary osteoarthritis, left knee; Z96.651 Presence of right artificial knee joint | CPT/HCPCS: 73560; 73565; 99214 ==

== ENCOUNTER 2023-11-09 09:51 | Outpatient (CLI) | payer MEDICARE, SELFPAY ==
--- NOTE | 2023-11-09 10:00 | CT_ITS ---
WS: [id number] CT LEFT KNEE, NONCONTRAST JOHNSON TECHNIQUE: Noncontrast CT of the LEFT knee to include the LEFT hip and ankle. CLINICAL INFORMATION: M17.12 - Unilateral primary osteoarthritis, left knee COMPARISON: None. DLP: 912.[address] scans at [facility] use at least one of these dose optimization techniques: automated e xposure control; mA and/or kV adjustment per patient size (includes targeted exams where dose is matc hed to clinical indication); or iterative reconstruction. FINDINGS: Postoperative changes RIGHT TKA. Moderate to advanced degenerative arthritis LEFT knee. Hypertrophic patella. Hypertrophic changes along the joint line. Small suprapatellar effusion. Small lobulated pop liteal cyst. Vascular calcification. Prior postoperative changes screw fixation across the sacroiliac joints. Sigmoid diverticulosis. Sigmoid constipation. IMPRESSION: Images obtained for preoperative purposes.
== END 2023-11-09 09:52 | disposition home or self-care (01) ==
LOC: RAD 09:52
PROVIDERS: PCP Nurse Practitioner Family; Visit Provider Specialist
DX: M17.12 Unilateral primary osteoarthritis, left knee (principal)
CPT/HCPCS: 73700

== ENCOUNTER 2023-11-09 09:54 | Outpatient (CLI) | payer MEDICARE, SELFPAY ==
[2023-11-09 11:20] LABS: Basophils # 0.1 10^3/uL (0.0-0.1); Basophils % 0.8 %; Eosinophils # 0.3 10^3/uL (0.0-0.8); Eosinophils % 3.5 %; Hematocrit 39.2 % (36-47); Lymphocytes # 1.5 10^3/uL (0.8-4.8); Lymphocytes % 20.1 %; Mean Corpuscular HGB Conc 31.9 g/dL (30-55); Mean Corpuscular Hemoglobin 29.9 pg (27-33); Mean Corpuscular Volume 93.8 fl (85-98); Mean Platelet Volume 10.3 fL (7.4-10.4); Monocytes # 0.7 10^3/uL (0.2-0.9); Neutrophils # 4.83 10^3/uL (1.8-7.7); Neutrophils % 65.5 %; Nucleated Red Blood Cells % 0 %; Platelet Count 206 10^3/cmm (157-399); Red Blood Count 4.18 10^6/uL (3.85-5.65); White Blood Count 7.37 10^3/uL (3.29-11.43)
[2023-11-09 11:23] LABS: Add Urine Microscopic? NO; Charge for UA Resulting for Rev
[2023-11-09 11:27] LABS: Bilirubin Urine Neg (Negative); Blood Urine Neg (Negative); Glucose Urine UA Norm (Normal); Ketones Urine Negative (Negative); Leukocyte Esterase Urine Negative (Negative); Nitrate Urine Negative (Negative); Protein Urine Neg (Negative); Specific Gravity, Urine 1.005 (1.005-1.030); Urine Appearance Clear (CLEAR); Urine Color Yellow (Yellow); Urobilinogen Urine Norm (Negative); pH Urine 7 (5-7)
[2023-11-09 12:00] LABS: Alanine Aminotransferase 21 U/L (0-33); Albumin Level 4.4 g/dL (3.5-5.2); Alkaline Phosphatase 66 U/L (35-105); Anion Gap 11.9 (5-19); Aspartate Amino Transferase 29 U/L (0-32); Blood Urea Nitrogen 20 mg/dL (8-23); Calcium 9.8 mg/dL (8.5-10.5); Carbon Dioxide 31 mmol/L (22-29); Chloride 103 mmol/L (98-107); Globulin 2.2 g/dL (1.3-4.6); Glucose 86 mg/dL (65-115); Osmolality Calculated 296 mOsm/kg (285-295); Potassium 3.9 mmol/L (3.5-5.1); Sodium 142 mmol/L (136-145); Total Bilirubin 0.3 mg/dL (0.15-1.2); Total Protein 6.6 g/dL (6.6-8.7)
== END 2023-11-09 09:55 | disposition home or self-care (01) ==
LOC: LAB 09:55
PROVIDERS: PCP Nurse Practitioner Family; Visit Provider Specialist
DX: Z01.818 Encounter for other preprocedural examination (principal)
CPT/HCPCS: 36415; 80053; 81003; 85025

== ENCOUNTER → 2023-12-04 11:23 | Outpatient (BNVA) | payer MEDICARE, SELFPAY | PROVIDERS: PCP Nurse Practitioner Family; Visit Provider Family Medicine | DX: Z01.818 Encounter for other preprocedural examination (principal); Z79.899 Other long term (current) drug therapy | CPT/HCPCS: 81003; 87077; 87086; 87184; 93005 ==

== ENCOUNTER 2023-12-12 10:26 | Observation (INO) | payer MEDICARE, SELFPAY ==
[2023-12-12] VITALS (20 sets, daily range): BP systolic 91–131; BP diastolic 4–76; PULSE 60–78; RESP 14–20; TEMP 36.4–38; O2SAT 91–99; BMI 18.6
[2023-12-12] MEDS: acetaminophen 1,000 MG/100 ML PIGGYBACK 400 MG IV ×3 (06:10→21:13)
[2023-12-12] MEDS: sodium chloride 0.9% 1,000 ML 30 ML IV (06:14)
[2023-12-12] MEDS: CELEcoxib 200 mg Capsule 400 MG PO (06:19)
[2023-12-12] MEDS: gabapentin 300 mg Capsule PO (06:19)
--- NOTE | 2023-12-12 06:54 | ANES.PREANE2 ---
Pre-Anesthetic Assessment Height/Weight: Height 1.57 m Weight 46.266 kg Temp Pulse Resp BP Pulse Ox O2 Del Method 98.4 F 60 16 131/61 98 Room Air 12/12/23 06:01 12/12/23 06:01 12/12/23 06:01 12/12/23 06:01 12/12/23 06:01 12/12/23 06:01 Operation Date: 12/12/23 07:00 Proposed Procedures p Levi Robot Total Knee Arthroplasty(Left) - Cassandra Rodriguez MD Familial anesthetic complications: None Was Beta Meghana taken within 24 hours: N/A Was Clonidine taken within 24 hours: N/A Last intake: Intake Last Liquid Date 12/11/23 Last Liquid Time 17:00 Last Solid Date 12/11/23 Last Solid Time 17:00 Social No alcohol and No tobacco Exam alert, oriented x 3, clear to auscultation bilaterally and regular rate & rhythm Airway Mallampati: Class III Dentition: full Pulmonary Asthma CV/HEM Hypertension Metabolic Hyperlipidemia Musc/skel severe back deformation s/p surgery - Anesthetic Plan ASA status: 3 Anesthesia: General and Regional (specify below) Risk of > 500 ml blood loss (7ml/kg in children): Yes, adequate IV access and fluids planned Medications/Allergies Home Medications Medication Instructions Recorded Confirmed Last Taken Type atorvastatin 20 mg tablet (Lipitor) 20 mg PO DAILY #90 tabs 05/09/23 12/12/23 12/11/23 Rx lisinopril 20 1 tab PO BID #180 tabs 05/09/23 12/12/23 12/11/23 Rx mg-hydrochlorothiazide 25 mg tablet verapamil 240 mg tablet,extended 240 mg PO DAILY #90 tabs 05/09/23 12/12/23 12/12/23 04:00 Rx release albuterol sulfate 90 mcg/actuation 2 puff inhalation Q6H PRN 06/16/23 12/12/23 Unknown Rx aerosol inhaler shortness of breath or wheezing #6.7 grams budesonide-formoterol HFA 80 1 inh inhalation BID 10/18/23 12/11/23 12/11/23 History mcg-4.5 mcg/actuation aerosol inhaler (Symbicort) denosumab 60 mg/mL subcutaneous 60 mg SUBCUT .every 6 months #1 mL 11/13/23 12/11/23 Unknown Rx syringe (Prolia) dicyclomine 10 mg capsule 10 mg PO BID #60 caps 11/20/23 12/12/23 12/11/23 Rx ascorbate calcium (vitamin C) 500 1 g PO DAILY 12/04/23 12/12/23 12/11/23 History mg tablet pkbzvre-zctjfvrbv-hmmc tablet 400 tab PO 1XD 12/04/23 12/12/23 12/11/23 History cholecalciferol (vitamin D3) 1,250 1,250 mcg PO 1XD 12/04/23 12/12/23 12/11/23 History mcg (50,000 unit) capsule cetirizine 10 mg tablet (Zyrtec) 10 mg PO DAILY 12/11/23 12/12/23 12/11/23 History gabapentin 600 mg tablet 600 mg PO TID 12/12/23 12/12/23 12/11/23 History Allergies Allergy/AdvReac Type Severity Reaction Status Date / Time chamomile flower Allergy ALGY-Difficulty Verified 12/11/23 09:39 Breathing levofloxacin [From Levaquin] Allergy ADV-Weaknes Verified 12/11/23 09:39 s Current Medications Generic Name Dose Route Start Last Admin Trade Name Freq PRN Reason Stop Dose Admin Sodium Chloride 1,000 mls @ 30 mls/hr 12/12/23 05:45 12/12/23 06:14 Sodium Chloride 0.9% IV 12/13/23 05:44 30 mls/hr .Q24H SHEA Administration PFSH Anesthesia Medical History Stroke ischemic stroke 2002, no residual effects but BP meds were added at the time. Hx of coronary artery disease Osteopenia Hypertension Hiatal hernia Howell esophagus GERD (gastroesophageal reflux disease) Osteoarthritis Hyperlipidemia Degenerative disc disease Surgical History S/P cataract surgery Status post spinal surgery Status post rotator cuff surgery Family History Mother Cancer S/P CABG (coronary artery bypass graft) Father Cancer Stroke Other Hypertension Denies family history of Clotting disorder Anesthesia complication Bleeding disorder Social History Smoking and tobacco/nicotine status: never used tobacco/nicotine Alcohol intake: never Substance/Drug Use: never Data Anesthesia Cardiac Studies: Echocardiogram 04/20/22 Sestamibi Stress Test (Cardiology) 04/20/22
--- NOTE | 2023-12-12 06:55 | ANES.PROC ---
Anesthesia Procedures Procedure/Date: 12/12/23 Nerve Block ^: Nerve Block 1: Main Anesthesia: general anesthesia Time Out Performed: Yes Consent: requested by attending/covering physician, from patient, from other, risks and benefits reviewed and patient agrees to proceed Nerve block location: adductor canal (L) Anesthesia monitors applied: pulse oximetry, EKG, BP cuff and oxygen Nerve block position: supine Anesthetic Used: ropivicaine 0.5% (30) and with decadron (4 mg) Ultrasound used to: recognize landmarks Nerve Stimulator Used?: No Interscalene/Femoral BLK: 4 stimuplex 21 g needle used for position and inplane approach, visualize local anesthetic spread and no vascular puncture identified Injection: neg aspiration of heme Patient Tolerated Procedure: well and no complications Complications: none
--- NOTE | 2023-12-12 07:01 | W.PM.OPSUD ---
Surgery/Procedure H&P Update DATE OF PROCEDURE: December 12, 2023 DATE H&P PERFORMED: 12/04/23 H&P UPDATE INFORMATION: I have reviewed H&P completed within last 30 days, I have examined patient prior to procedure, No changes to prior documentation and H&P is in [facility] EMR on date indicated PLANNED PROCEDURE: Operation Date: 12/12/23 07:00 Proposed Procedures p Levi Robot Total Knee Arthroplasty(Left) - Cassandra Rodriguez MD Related Problem List Diagnoses (1) Primary osteoarthritis of left knee:
[2023-12-12] MEDS: ceFAZolin 2,000 MG in sodium chloride 0.9% (plus) 50 ML 100 MG IV ×3 (07:06→22:01)
[2023-12-12] MEDS: tranexamic acid 1,000 mg/10mL SDV 1000 MG IV (07:42)
[2023-12-12] MEDS: BUPivacaine liposome 13.3 mg/mL SDV 10 mL 266 MG INFILTRATI (08:14)
[2023-12-12] MEDS: BUPivacaine 0.5% INJ 30 mL 20 ML XX (08:14)
[2023-12-12] MEDS: ceFAZolin 1,000 mg SDV 2000 MG IRRIGATION (08:15)
[2023-12-12] MEDS: vancomycin 1,000 MG SDV 1000 MG XX (08:16)
--- NOTE | 2023-12-12 10:13 | PM.OP ---
Operative Report Date of procedure: December 12, 2023 Pre-op diagnosis: Severe degenerative osteoarthritis of the left knee with valgus deformity Post-op diagnosis: Severe degenerative osteoarthritis of the left knee with valgus deformity Post-op findings: Severe valgus deformity with significant osteoarthritis Procedure done: Left total knee arthroplasty with Levi guidance Implants: [employer] total knee system with a size 3 triathlon cruciate retaining femur left, a triathlon universal tibial component size?2 cemented, a triathlon X3 tibial bearing CS insert size 2 X 9 mm and a triathlon symmetric patella size 29 x 8 mm Specimens removed/disposition: Bone, disposed of Pathology: None Surgeon: Cassandra Rodriguez MD Dispatch Manager: [facility] operating room technicians Anesthesia: General (Per LMA, ASA 3) Estimated blood loss (mL): 100 Tourniquet time (min): 0 (Not utilized) IV fluids (mL): 1,500 Urine output (mL): 50 (No Joe) Complications: None Findings: Severe valgus deformity with severe degenerative osteoarthritis and osteopenic bone. Condition: stable Disposition: PACU (Then to floor for postoperative rehabilitation and pain management) Brief History: This is a 78-year-old woman who presents for left total knee arthroplasty with Levi guidance. Patient has been having pain for years. The patient underwent right total knee arthroplasty in March 2023, and she is doing quite well with this. Currently, she is having severe pain in the left knee which limits her activities of daily living. She wishes to proceed with left total knee arthroplasty. Risks and complications were discussed with her in the office. Consents were signed, and questions were answered. Procedure: The patient was brought to the operating theater, and she was administered a general anesthesia per LMA, ASA 3. The patient also had a supplemental adductor block.? Following this, the left lower extremity was prepped with Dura-Prep and draped in usual fashion following placement of a tourniquet high on the leg. The leg was then draped free.? Tourniquet was not elevated during the case.? A surgical pause was performed, and at the time of the surgical pause, we confirmed the site and side of surgery. Additionally, we confirmed the appropriate and timely administration of preoperative antibiotics, Ancef 2 g and Transexemic acid 1 g.? The availability of equipment was confirmed, and the patient's identity was verbalized as well. Following the surgical pause, an incision was made centering over the patella continuing proximally and distally as necessary to allow access to the knee joint. Dissection continued through skin and soft tissues using a scalpel. Hemostasis was obtained using electrocautery. The skin incision was followed by a median parapatellar arthrotomy. The leg was extended and the patella was able to be displaced laterally without difficulty.? Medial release was initially accomplished to allow placement for the Levi array.? Appropriate arrays and markers were placed in appropriate position for use of the Levi.? Preoperative planning had been accomplished and was discussed in detail with the [facility] phlebotomy services representative.? Intraoperative mapping of the femur and tibia was accomplished after the arrays were placed.? Internal markers were also placed.? Once we had accomplished the Levi mapping, we began the appropriate resections for placement of the prosthesis.? The plan was for a cruciate retaining right total knee arthroplasty.? Medial releases were accomplished prior to the surgical procedure to allow balancing of the knee. Once appropriate mapping had been accomplished retraction was established using manual retraction by surgical technicians and also the [facility] leg positioner and retractors.? The knee was evaluated.? There was significant osteoarthritic change with significant osteophyte formation and significant varus.? First cuts were made on the femur.? Appropriate resection of bone was accomplished with the Levi guidance.? The femur was sized to a size 3.? Following the tibial cut, the tibia to a size 2.? Osteophytes were removed prior to beginning bony resection. Secondary to the patient's osteopenia, plans were made for a cemented knee arthroplasty. A trial reduction was accomplished after osteophytes have been removed as well as the medial and lateral menisci.? We had removed the anterior cruciate ligament at the beginning of the case and preserved the posterior cruciate ligament.? Trial reduction was accomplished with a size 3 femoral posterior cruciate retaining component and a size 2 tibial tray with a size 2 x 9 CS tibial bearing insert.? Alignment and balance were felt to be appropriate. Consideration was also given to a PS component, but with the CS component in place, we had excellent tracking and therefore chose to continue with a cemented cruciate retaining prosthesis. Trial components were removed after the femur had been drilled.? Prior to removal of the tibial tray which had been pinned in position with appropriate rotation as determined by the Levi plan, we drilled and broached the tibia.? All trial components were removed, and the wound was irrigated.? Plans were made for insertion of the prosthetic components.? Prior to this, the patella was manually prepared.? After resection of the articular surface with the patellar huang, it was measured and measured a 29 mm symmetric patella.? We resected approximately 5 mm of patella as it was noted to be quite thin.? Patellar height was restored with the patellar component. Once again, the wound was irrigated.? Surfaces were then dried. There was not significant bleeding, therefore, tourniquet was not elevated. The size 2 universal tibial baseplate was cemented into position. Excess cement was cleared once cementing was accomplished. Following this, the CS tibial insert was placed into the tibial tray and impacted into position. The cruciate retaining right femur was then cemented into position as well. Excess cement again was cleared. The leg was extended and held in an extended position while the cement fully cured. Additionally, the size 29 mm symmetric patella was cemented in position as well. This was held with a clamp while the cement fully cured.? Exparel was injected about the components deep and superficially.? The knee was then copiously irrigated with betadine and saline and suctioned dry.? Further irrigation was accomplished with saline following the Betadine.? Attention was then directed to closure. Closure was accomplished with 0 Vicryl in the fascial tissues followed by #1 strata fix run from proximal to distal as well as distal to proximal overlapping.? This was followed by Surgiflo and vancomycin powder.? Following this, 2-0 Monocryl was used to close the subcutaneous tissues and a 3 strata fix was used to close subcuticular.? Care was taken to assure an excellent subcutaneous as well as skin closure.? A sterile dressing was then placed consisting of Dermabond Prineo, OpSite, sterile soft roll including over the foot, and an [place] wrap. The patient was returned the Recovery Room in a satisfactory condition. X-rays were obtained and reviewed there.? The patient will be discharged to the floor for postoperative rehabilitation and pain management. Related Problem List Diagnoses (1) Primary osteoarthritis of left knee:
--- NOTE | 2023-12-12 10:33 | XRR_ITS ---
PROCEDURE INFORMATION: Exam: XR Left Knee Exam date and time: 12/12/2023 10:36 AM Age: 78 years old Clinical indication: Device placement; Joint replacement hardware; Prior surgery; Surgery date: Post-operative (0-2 days); Surgery type: RT knee; Additional info: Post op TECHNIQUE: Imaging protocol: Radiologic exam of the left knee. Views: 1 or 2 views. COMPARISON: CT knee LT [facility] [id number] 11/09/2023 10:09 AM FINDINGS: Bones/joints: Satisfactory immediate postoperative appearance of left total knee arthroplasty. Soft tissues: Postoperative gas. XR/XR knee LT 1-2V [id number] IMPRESSION: Satisfactory postoperative appearance.
--- NOTE | 2023-12-12 10:50 | ANE.PACU2 ---
Inpatient post-anesthesia follow up: Airway intact: Yes Vital signs: Temperature 98.6 F Pulse Rate 67 Respiratory Rate 17 Blood Pressure 125/76 Pulse Oximetry 98 Oxygen Delivery Me thod Nasal Cannula Oxygen Flow Rate 1 Fraction of Inspir ed Oxygen Hydration adequate: Yes Nausea and vomiting: No Pain level: 1 Mental status: Baseline
[2023-12-12] MEDS: oxyCODONE 5 mg IR Tab/Cap PO ×3 (11:43→21:18)
[2023-12-12] MEDS: chlorhexidine gluconate 0.12% Btl 473 mL 30 ML MUCOUS MEM ×3 (14:35→21:20)
[2023-12-12] MEDS: iron polysaccharide complex 150 mg Capsule PO (16:41)
[2023-12-12] MEDS: mupirocin oint 22 gm 1 APPLIC NASAL (16:41)
[2023-12-12] MEDS: sennosides-docusate Tablet 2 TAB PO (16:41)
[2023-12-12] MEDS: calcium carbonate 500 mg Chew Tablet 1000 MG PO (16:42)
[2023-12-13] VITALS: BP 116/70; PULSE 107; RESP 17; TEMP 36.8; O2SAT 93
[2023-12-13 04:00] VITALS: BP 113/60; PULSE 111; RESP 15; TEMP 36.9; O2SAT 99
[2023-12-13 05:43] LABS: Basophils % 0.1 %; Hematocrit 30.3 % (36-47); Lymphocytes # 0.8 10^3/uL (0.8-4.8); Lymphocytes % 4.3 %; Mean Corpuscular HGB Conc 32.7 g/dL (30-55); Mean Corpuscular Hemoglobin 30.1 pg (27-33); Mean Corpuscular Volume 92.1 fl (85-98); Mean Platelet Volume 10.9 fL (7.4-10.4); Monocytes # 1.2 10^3/uL (0.2-0.9); Monocytes % 6.5 %; Neutrophils # 16.42 10^3/uL (1.8-7.7); Neutrophils % 88.5 %; Nucleated Red Blood Cells % 0 %; Platelet Count 189 10^3/cmm (157-399); Red Blood Count 3.29 10^6/uL (3.85-5.65); Red Cell Distribution Width 12.6 % (12.1-15.1); White Blood Count 18.56 10^3/uL (3.29-11.43)
[2023-12-13 06:03] LABS: Anion Gap 14.1 (5-19); Blood Urea Nitrogen 28 mg/dL (8-23); Calcium 8.6 mg/dL (8.5-10.5); Carbon Dioxide 25 mmol/L (22-29); Chloride 103 mmol/L (98-107); Creatinine Clr Calc Pharmacy 32.2602; Glucose 139 mg/dL (65-115); Osmolality Calculated 294 mOsm/kg (285-295); Potassium 4.1 mmol/L (3.5-5.1); Sodium 138 mmol/L (136-145)
[2023-12-13] MEDS: acetaminophen 1,000 MG/100 ML PIGGYBACK 400 MG IV (06:32)
[2023-12-13 06:52] VITALS: RESP 16
[2023-12-13] MEDS: oxyCODONE 5 mg IR Tab/Cap PO ×2 (06:52→15:08)
[2023-12-13] MEDS: ceFAZolin 2,000 MG in sodium chloride 0.9% (plus) 50 ML 100 MG IV (06:53)
[2023-12-13] MEDS: ondansetron 2 mg/ML SDV 2 mL 4 MG IVP (07:58)
[2023-12-13 08:00] VITALS: BP 122/58; PULSE 109; RESP 16; TEMP 36.6; O2SAT 95
[2023-12-13] MEDS: sennosides-docusate Tablet 2 TAB PO (08:32)
[2023-12-13] MEDS: CELEcoxib 200 mg Capsule PO (08:32)
[2023-12-13] MEDS: chlorhexidine gluconate 0.12% Btl 473 mL 30 ML MUCOUS MEM (08:32)
[2023-12-13] MEDS: cholecalciferol (vitamin D3) 1,000 unit Tablet 1000 UNIT PO (08:32)
[2023-12-13] MEDS: iron polysaccharide complex 150 mg Capsule PO (08:32)
[2023-12-13] MEDS: aspirin 325 mg EC Tablet PO (08:32)
[2023-12-13] MEDS: multivitamin therapeutic Tablet 1 TAB PO (08:32)
[2023-12-13] MEDS: calcium carbonate 500 mg Chew Tablet 1000 MG PO (08:32)
[2023-12-13] MEDS: mupirocin oint 22 gm 1 APPLIC NASAL (08:33)
[2023-12-13 12:00] VITALS: BP 126/62; PULSE 85; RESP 16; TEMP 36.7; O2SAT 99
--- NOTE | 2023-12-13 14:03 | PM.DCS ---
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 Patient has been having pain for years. The patient underwent right total knee arthroplasty in March 2023, and she is doing quite well with this. Currently, she is having severe pain in the left knee which limits her activities of daily living. She wishes to proceed with left total knee arthroplasty. Risks and complications were discussed with her in the office. Consents were signed, and questions were answered. Hospital Course Hospital Course This 78-year-old woman was admitted for observation status following left total knee arthroplasty with Levi guidance, cemented. Patient did well postoperatively. She was felt safe for discharge to home after working with physical therapy. She was neurologically intact, and dressings were dry and intact. There was no evidence of DVT. The patient was discharged home on postop day 1. Physical Exam Const: COMMON NORMALS: no acute distress, average body habitus, patient oriented x3 and alert GENERAL APPEARANCE: cooperative and comfortable ORIENTATION/CONSCIOUSNESS: Yes awake HENMT: COMMON NORMALS: normocephalic and atraumatic HEAD & SCALP: normocephalic and atraumatic Eye: GENERAL EYE: appearance normal, both eyes and all related structures Chest: COMMONS NORMALS: normal inspection of the chest Resp: COMMON NORMALS: normal respiratory effort EFFORT & INSPECTION: Yes able to speak in complete sentences and Yes symmetric chest movement Extremity: LEFT LOWER EXTREMITY: Yes knee joint (Dressing dry and intact without drainage) Left knee: Yes ROM (Not evaluated) and Yes neurovascular exam (Intact distally with no evidence of DVT) Neuro: COMMON NORMALS: patient oriented x3 SENSORIUM/ORIENTATION: Yes alert Psych: COMMON NORMALS: mental status grossly normal APPEARANCE: Yes grossly normal ATTITUDE: Yes calm and Yes engaged ATTENTION/CONCENTRATION: Yes attention grossly intact Skin: COMMON NORMALS: no rashes or lesions noted GENERAL SKIN EXAM: no rashes or lesions noted Urinary Catheter Management: Joe: Cath Placed During This Visit: yes, but has since been removed by the nurse Reason for Continuing Indwelling Catheter: Decision to DC Catheter Urinary Catheter Date of Insertion: 12/12/23 Urinary Catheter Time of Insertion: 07:30 Date Urinary Catheter Removed: 12/13/23 Time Urinary Catheter Discontinued: 06:08 Discharge Data Studies Completed and Pending Completed Studies During Hospitalization Category Date Time Status XR knee LT 1-2V [id number] Routine Exams 12/12/23 10:33 Completed Radiology Impressions Knee X-Ray 12/12/23 10:33 IMPRESSION: Satisfactory postoperative appearance. Laboratory Results WBC 18.56 10^3/uL (3.29-11.43) H 12/13/23 04:56 RBC 3.29 10^6/uL (3.85-5.65) L 12/13/23 04:56 Hgb 9.90 g/dL (11.27-16.99) L 12/13/23 04:56 Hct 30.3 % (36-47) L 12/13/23 04:56 MCV 92.1 fl (85-98) 12/13/23 04:56 MCH 30.1 pg (27-33) 12/13/23 04:56 MCHC 32.7 g/dL (30-55) 12/13/23 04:56 RDW 12.6 % (12.1-15.1) 12/13/23 04:56 Plt Count 189 10^3/cmm (157-399) 12/13/23 04:56 MPV 10.9 fL (7.4-10.4) H 12/13/23 04:56 Neut % (Auto) 88.5 % 12/13/23 04:56 Lymph % (Auto) 4.3 % 12/13/23 04:56 Gaston % (Auto) 6.5 % 12/13/23 04:56 Eos % (Auto) 0.0 % 12/13/23 04:56 Baso % (Auto) 0.1 % 12/13/23 04:56 Neut # (Auto) 16.42 10^3/uL (1.8-7.7) H 12/13/23 04:56 Lymph # (Auto) 0.8 10^3/uL (0.8-4.8) 12/13/23 04:56 Gaston # (Auto) 1.2 10^3/uL (0.2-0.9) H 12/13/23 04:56 Eos # (Auto) 0.0 10^3/uL (0.0-0.8) 12/13/23 04:56 Baso # (Auto) 0.0 10^3/uL (0.0-0.1) 12/13/23 04:56 Nucleated RBC % (auto) 0 % 12/13/23 04:56 Nucleated RBCs # 0.0 /100WBC 12/13/23 04:56 Sodium 138 mmol/L (136-145) 12/13/23 04:56 Potassium 4.1 mmol/L (3.5-5.1) 12/13/23 04:56 Chloride 103 mmol/L (98-107) 12/13/23 04:56 Carbon Dioxide 25 mmol/L (22-29) 12/13/23 04:56 Anion Gap 14.1 (5-19) 12/13/23 04:56 BUN 28 mg/dL (8-23) H 12/13/23 04:56 Creatinine 1.2 mg/dL (0.5-0.9) H 12/13/23 04:56 GFR Calculation Not Reportable 12/13/23 04:56 Glucose 139 mg/dL (65-115) H 12/13/23 04:56 Calculated Osmolality 294 mOsm/kg (285-295) 12/13/23 04:56 Calcium 8.6 mg/dL (8.5-10.5) 12/13/23 04:56 Vitals Last Vital Signs Temp 98.1 F 12/13/23 12:00 Pulse 85 12/13/23 12:00 Resp 16 12/13/23 12:00 BP 126/62 12/13/23 12:00 Pulse Ox 99 12/13/23 12:00 O2 Del Method Room Air 12/13/23 04:00 O2 Flow Rate 1 12/12/23 15:40 Discharge Plan Discharge Patient Disposition: Home Health Service Condition: Stable Prescriptions: New celecoxib 200 mg Capsule 200 mg PO DAILY 30 Days Qty: 30 0RF acetaminophen 500 mg Tablet 1,000 mg PO Q8H 15 Days Qty: 0 0RF aspirin 325 mg Tablet,Delayed Release (Dr/Ec) 325 mg PO DAILY 30 Days Qty: 0 0RF oxycodone 5 mg Tablet 5 - 10 mg PO Q4H PRN (Reason: Moderate To Severe Pain) 7 Days Qty: 40 0RF Continued albuterol sulfate 90 mcg/actuation HFA aerosol inhaler 2 puff inhalation Q6H PRN (Reason: shortness of breath or wheezing) Qty: 6.7 0RF budesonide-formoterol [Symbicort] 80-4.5 mcg/actuation HFA aerosol inhaler 1 inh inhalation BID [id number] Tablet 400 tab PO 1XD ascorbate calcium (vitamin C) 500 mg tablet 1 g PO DAILY cholecalciferol (vitamin D3) 1,250 mcg (50,000 unit) capsule 1,250 mcg PO 1XD lisinopril-hydrochlorothiazide 20-25 mg tablet 1 tab PO BID Qty: 180 3RF verapamil 240 mg tablet extended release 240 mg PO DAILY Qty: 90 3RF atorvastatin [Lipitor] 20 mg tablet 20 mg PO DAILY Qty: 90 3RF Prolia 60 mg/mL syringe 60 mg SUBCUT .every 6 months Qty: 1 1RF Rx Instructions: due this month dicyclomine 10 mg capsule 10 mg PO BID Qty: 60 0RF cetirizine [Zyrtec] 10 mg Tablet 10 mg PO DAILY gabapentin 600 mg tablet 600 mg PO TID Discharge Orders: Discharge Order (Routine); Ordered 12/13/23 Ordered By: Cassandra Rodriguez Referrals: [facility] [Outside] Anat May FNP [Primary Care Provider] - (We have notified your physician's clinic of the need for a follow-up appointment to be scheduled. If you have not heard from them within the next 2 business days, please call them directly. ) Cassandra Rodriguez MD [Physician] - 01/08/24 2:45 pm Discharge Diet: Advance as tolerated and Usual diet Discharge Activity: Increase activity as tolerated, Use walker/crutches as instructed and As per PT/OT instructions Patient Instructions: Aspirin (By mouth), Oxycodone, Rapid Release (By mouth), Celecoxib (By mouth), Total Knee Replacement (GEN), Joint Replacement Stoplight, Opioid Safety Activity Restrictions/Additional Instructions: Ice to left knee. Elevate left lower extremity. Use walker or crutches for comfort and walking. Physical therapy for gait training, ambulation, and strengthening. Discharge Attestations Time Spent in Discharge Care*: greater than 30 min Specific Discharge Activities: educating patient, documenting/other paperwork and evaluating patient/reviewing data Quality Metrics Clinical Quality Measures [ No reported AMI, CVA or VTE this stay] Coding Level of Care Code Acute Code for Chg Fwd Diagnoses Status post total left knee replacement using cement Z96.652 Laterality: left Primary osteoarthritis of left knee M17.12
[2023-12-13 15:08] VITALS: RESP 17; O2SAT 94
== END 2023-12-13 15:35 | disposition home health service (06) ==
LOC: MEDSURG 10:26
PROVIDERS: Admitting Provider Specialist; PCP Nurse Practitioner Family; Visit Provider Specialist
PROC: 8E0Y0CZ Robotic Assisted Procedure of Lower Extremity, Open Approach (ICD-10-PCS; CPT 27447; principal; 2023-12-12 07:00)
DX: M17.12 Unilateral primary osteoarthritis, left knee (principal); M21.062 Valgus deformity, not elsewhere classified, left knee; I10 Essential (primary) hypertension; E78.5 Hyperlipidemia, unspecified; I25.10 Atherosclerotic heart disease of native coronary artery without angina pectoris
CPT/HCPCS: 20985; 27447; 36415; 51702; 73560; 80048; 85025; 97110; 97116; 97162; 97165; C1776; C9290; G0378; J0131; J0690; J1100; J2371; J2405; J2704; J2795; J3010; J3370; J3490; J7030

== ENCOUNTER → 2024-01-01 08:36 | Outpatient (BNVA) | payer MEDICARE, SELFPAY | PROVIDERS: PCP Nurse Practitioner Family; Visit Provider Specialist | DX: Z96.652 Presence of left artificial knee joint (principal) | CPT/HCPCS: 73560; 73565; 99024 ==

== ENCOUNTER → 2024-01-22 10:24 | Outpatient (BNVA) | payer MEDICARE, SELFPAY | PROVIDERS: PCP Nurse Practitioner Family; Visit Provider Nurse Practitioner Family | DX: I63.9 Cerebral infarction, unspecified (principal); D64.9 Anemia, unspecified; K59.03 Drug induced constipation; D50.8 Other iron deficiency anemias; Z79.899 Other long term (current) drug therapy | CPT/HCPCS: 80061; 85025 ==

== ENCOUNTER → 2024-02-01 11:49 | Outpatient (BNVA) | payer MEDICARE, SELFPAY | PROVIDERS: PCP Nurse Practitioner Family; Visit Provider Internal Medicine | DX: R06.00 Dyspnea, unspecified (principal); I10 Essential (primary) hypertension; E78.5 Hyperlipidemia, unspecified; K21.9 Gastro-esophageal reflux disease without esophagitis; K22.70 Barrett's esophagus without dysplasia; M19.90 Unspecified osteoarthritis, unspecified site | CPT/HCPCS: 99213 ==

== ENCOUNTER → 2024-03-11 08:23 | Outpatient (BNVA) | payer MEDICARE, SELFPAY | PROVIDERS: PCP Nurse Practitioner Family; Visit Provider Specialist | DX: Z96.652 Presence of left artificial knee joint (principal); M17.12 Unilateral primary osteoarthritis, left knee; Z96.651 Presence of right artificial knee joint; Z47.1 Aftercare following joint replacement surgery | CPT/HCPCS: 73560; 73565; 99213 ==

== ENCOUNTER → 2024-09-09 10:28 | Outpatient (BNVA) | payer MEDICARE, SELFPAY | PROVIDERS: PCP Nurse Practitioner Family; Visit Provider Specialist | DX: Z96.652 Presence of left artificial knee joint (principal); Z96.651 Presence of right artificial knee joint; M17.0 Bilateral primary osteoarthritis of knee; M25.552 Pain in left hip; M79.652 Pain in left thigh | CPT/HCPCS: 73502; 73560; 73565; 99215 ==

== ENCOUNTER → 2024-10-22 07:29 | Outpatient (BNVA) | payer MEDICARE, SELFPAY | PROVIDERS: PCP Nurse Practitioner Family; Visit Provider Nurse Practitioner Family | DX: J02.9 Acute pharyngitis, unspecified (principal) | CPT/HCPCS: 87880 ==

== ENCOUNTER → 2024-11-26 14:27 | Outpatient (BNVA) | payer MEDICARE, SELFPAY | PROVIDERS: PCP Nurse Practitioner Family; Visit Provider Nurse Practitioner Family | DX: R53.83 Other fatigue (principal); I10 Essential (primary) hypertension | CPT/HCPCS: 80053; 84439; 84443; 85025 ==

== ENCOUNTER → 2025-01-30 13:27 | Outpatient (BNVA) | payer MEDICARE, SELFPAY | PROVIDERS: PCP Nurse Practitioner Family; Visit Provider Internal Medicine | DX: R06.00 Dyspnea, unspecified (principal); I10 Essential (primary) hypertension; E78.5 Hyperlipidemia, unspecified; K21.9 Gastro-esophageal reflux disease without esophagitis; K22.70 Barrett's esophagus without dysplasia; M19.90 Unspecified osteoarthritis, unspecified site | CPT/HCPCS: 99214 ==

== ENCOUNTER 2025-06-27 13:27 | Outpatient (CLI) | payer MEDICARE, SELFPAY ==
--- NOTE | 2025-06-27 14:15 | USR_ITS ---
PROCEDURE INFORMATION: Exam: US Duplex Bilateral Lower Extremity Arteries Exam date and time: 06/27/2025 1:38 PM Age: 80 years old Clinical indication: Pain; Leg, lower; Bilateral; Additional info: Z01.818 - encounter for other preprocedural examination TECHNIQUE: Imaging protocol: Real-time ultrasound scan of the arteries of the bilateral lower extremities with 2-D castro scale, color Doppler flow and spectral waveform analysis. Images documented and saved. COMPARISON: CT knee LT [id number] [id number] 11/09/2023 10:09 AM FINDINGS: Right common femoral artery: No occlusion or significant stenosis. Normal waveform. Right superficial femoral artery: No occlusion or significant stenosis. Normal waveform. Right popliteal artery: No occlusion or significant stenosis. Normal waveform. Right calf/foot arteries: No occlusion or significant stenosis in the visualized arteries. Normal waveforms. Dorsalis pedis artery is patent. Left common femoral artery: No occlusion or significant stenosis. Normal waveform. Left superficial femoral artery: No occlusion or significant stenosis. Normal waveform. Left popliteal artery: No occlusion or significant stenosis. Normal waveform. Left calf/foot arteries: No occlusion or significant stenosis in the visualized arteries. Normal waveforms. Dorsalis pedis artery is patent. Other findings: JOHN is 1.1 bilaterally. US/[place] [id number] IMPRESSION: No stenosis or occlusion.
== END 2025-06-27 13:28 | disposition home or self-care (01) ==
LOC: RAD 13:29
PROVIDERS: PCP Nurse Practitioner Family; Visit Provider Nurse Practitioner Family
DX: Z01.818 Encounter for other preprocedural examination (principal); I73.9 Peripheral vascular disease, unspecified
CPT/HCPCS: 93925